=== PATIENT | male | born 1980 | race Caucasian/White ===

== ENCOUNTER 2019-09-18 23:29 | Emergency (ER) | payer SELFPAY ==
[~2019-09-18] VITALS: Ht 182.9 cm; Wt 71.0 kg
[2019-09-18 23:43] VITALS: BP 130/65
== END 2019-09-19 01:57 | disposition home or self-care (01) ==
LOC: ER 23:30
DX: M70.872 Other soft tissue disorders related to use, overuse and pressure, left ankle and foot (principal); M70.871 Other soft tissue disorders related to use, overuse and pressure, right ankle and foot; G47.419 Narcolepsy without cataplexy; F12.90 Cannabis use, unspecified, uncomplicated; Z59.0 Homelessness; Y93.89 Activity, other specified
CPT/HCPCS: 99281